=== PATIENT | female | born 1930 | race Caucasian/White ===

== ENCOUNTER 2017-07-23 11:20 | Emergency (ER) | payer OTHER ==
[~2017-07-23] VITALS: Ht 157.5 cm; Wt 70.0 kg
[~2017-07-23 11:20] MED LIST: ALEN1TAB48 PO; BUPR150T3 PO; CEFT500T3 PO; COUM2TAB PO; DILT180C56 PO; FLUT1INH7 INH; IPRASOL INH; LISI10TA3 PO; OXYB5TAB10 PO; PRAV80TA2 PO; PRIL20CA9 PO; TRAZ50TA12 PO
[2017-07-23 11:22] VITALS: BP 185/74; PULSE 72; RESP 13; TEMP 98.6; O2SAT 83
[2017-07-23 12:11] LABS: AUTOMATED NEUTROPHIL # 2.9 TH/MM3 (1.8-7.7); BASOPHIL % 0.5 % (0.0-2.0); HEMATOCRIT 31.3 % (35.0-46.0); HEMO FLAGS DIFF FINAL; LYMPH % 26.3 % (9.0-44.0); LYMPHOCYTE # 1.5 TH/MM3 (1.0-4.8); MEAN CELL VOLUME 77.2 FL (80.0-100.0); MEAN CORPUSCULAR HEMOGLOBIN 24.2 PG (27.0-34.0); MEAN CORPUSCULAR HGB CONC 31.3 % (32.0-36.0); MONO % 22.4 % (0.0-8.0); NEUT % 50.8 % (16.0-70.0); PLATELET COUNT 142 TH/MM3 (150-450); RED BLOOD COUNT 4.05 MIL/MM3 (4.00-5.30); RED CELL DISTRIBUTION WIDTH 17.5 % (11.6-17.2); WHITE BLOOD COUNT 5.7 TH/MM3 (4.0-11.0)
[2017-07-23 12:30] LABS: BICARBONATE 33.4 MEQ/L (21.0-32.0); POTASSIUM 3.8 MEQ/L (3.5-5.1)
[2017-07-23 12:57] VITALS: RESP 18; O2SAT 98
[2017-07-23] MEDS ORDERED: RESP: ALBUTEROL 2.5 MG/IPRATROPIUM 0.5 MG NEB (SCH) INH ONE (13:00)
[2017-07-23] MEDS ORDERED: MORPHINE SULFATE 4 MG/ML INJ IV PUSH ONE (13:00)
[2017-07-23] MEDS ORDERED: ONDANSETRON HCL 4 MG/2 ML VIAL IV PUSH ONE (13:00)
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
[2017-07-23 14:00] VITALS: BP 139/71; PULSE 73; RESP 18; TEMP 97.9; O2SAT 96
[2017-07-23] MEDS ORDERED: COUM7.5T PO (14:03)
[2017-07-23] MEDS ORDERED: DILT0.05 PO (14:03)
[2017-07-23] MEDS ORDERED: OMEP20TA PO (14:03)
[2017-07-23] MEDS ORDERED: FLUO10TA PO (14:03)
[2017-07-23] MEDS ORDERED: LISI-515 PO (14:03)
[2017-07-23 14:12] LABS: APTT (PATIENT) 26.6 SEC (24.3-30.1)
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
[2017-07-23] MEDS ORDERED: HYDR-3533 PO (15:07)
[2017-07-23] MEDS ORDERED: XARE20TA PO (15:07)
[2017-07-23] MEDS ORDERED: ALBUAER3 INH (15:07)
[2017-07-23 15:25] VITALS: BP 124/81; TEMP 97.8
--- NOTE | 2017-07-23 16:53 | EKG ---
Date Performed: 07/23/2017 Time Performed: 11:40:29 PTAGE: 86 years EKG: Sinus rhythm POSSIBLE INFERIOR MYOCARDIAL INFARCTION ABNORMAL ECG PREVIOUS TRACING : 10/08/2016 15.00 Compared to previous tracing, poor R wave progression is no longer present. DOCTOR: Bravo Zuñiga Interpretating Date/Time 07/23/2017 16:52:40
== END 2017-07-23 15:45 | disposition home or self-care (01) ==
LOC: NEPC 11:20
DX: S20.219A Contusion of unspecified front wall of thorax, initial encounter (principal); R22.2 Localized swelling, mass and lump, trunk; R53.83 Other fatigue; R41.0 Disorientation, unspecified; R94.31 Abnormal electrocardiogram [ECG] [EKG]; J44.9 Chronic obstructive pulmonary disease, unspecified; I48.91 Unspecified atrial fibrillation; I10 Essential (primary) hypertension; V43.62XA Car passenger injured in collision with other type car in traffic accident, initial encounter
CPT/HCPCS: 70450; 71010; 71250; 72125; 74176; 80048; 82550; 84484; 85025; 85610; 85730; 93005; 94150; 94664; 96374; 96375; 99285; J2270; J2405